=== PATIENT | female | born 1975 | race Two or more races ===

== ENCOUNTER 2024-03-31 18:08 | Inpatient (IN) | payer MEDICAID, OTHER ==
[~2024-03-31] VITALS: Ht 165.1 cm; Wt 124.3 kg
[2024-03-31 18:52] LABS: Basophils # (auto) 0.1 10 ^3/uL (0-0.2); Basophils % (auto) 0.9 % (0.0-2.0); Eosinophils # (auto) 0.3 10 ^3/uL (0-0.8); Eosinophils % (auto) 2.6 % (0.0-7.0); Hematocrit 41.5 % (36.0-46.0); Hemoglobin 13.7 g/dL (12.2-16.2); Lymphocytes # (auto) 2.8 10 ^3/uL (0.4-5.4); Lymphocytes % (auto) 25.1 % (10.0-50.0); Mean Corpuscular Hemoglobin 27.6 pg (28.0-32.0); Mean Corpuscular Hgb Conc. 32.9 g/dL (32.0-36.0); Mean Corpuscular Volume 83.8 fL (80.0-100.0); Monocytes # (auto) 0.5 10 ^3/uL (0-1.3); Monocytes % (auto) 4.8 % (0.0-12.0); Neutrophils # (auto) 7.4 10 ^3/uL (1.6-8.6); Neutrophils % (auto) 66.6 % (37.0-80.0); Nucleated Red Blood Cells % 0.1 %; Red Blood Cells 4.95 10^6/uL (4.0-5.20); Red Cell Distribution Width 15.6 % (11.8-14.3); White Blood Cell 11.1 10^3/uL (4.4-10.8)
[2024-03-31 19:07] LABS: Alanine Aminotransferase 31 U/L (7-40); Albumin 4.5 g/dL (3.2-4.8); Alkaline Phosphatase 109 U/L (46-116); Anion Gap 11 (5-15); Aspartate Aminotransferase 25 U/L (13-40); Blood Urea Nitrogen 11 mg/dL (9-23); Calcium 9.8 mg/dL (8.5-10.1); Carbon Dioxide 28 mmol/L (20-30); Chloride 98 mmol/L (98-107); Glucose 323 mg/dL (74-106); Potassium 3.8 mmol/L (3.5-5.1); Sodium 137 mmol/L (136-145)
[2024-03-31 19:08] LABS: Bilirubin, Total 0.6 mg/dL (0.2-1.0); Total Protein 7.1 g/dL (5.7-8.2)
[2024-03-31] MEDS: IOHEXOL 350 MG/ML 100ML IJ ONE (20:38)
[2024-03-31] MEDS: methylPREDNISolone SOD SUCC 500 MG in SODIUM CHL 0.9% 100 ML IV ONE (21:18)
[2024-03-31] MEDS ORDERED: DEXTROSE (50%) 50ML SYRG IV PRN (22:30)
[2024-03-31] MEDS ORDERED: ONDANSETRON HCL 4 MG/2 ML VIAL IV PRN (22:30)
[2024-03-31] MEDS ORDERED: ACETAMINOPHEN 325 MG TAB PO PRN (22:30)
[2024-03-31] MEDS ORDERED: ARTIFICIAL TEARS 15ml EACHEYE PRN (22:30)
[2024-03-31] MEDS ORDERED: NITROGLYCERIN 0.4 MG SL TAB SL PRN (22:30)
[2024-03-31] MEDS ORDERED: MORPHINE SULFATE INJ 2 MG/ml SYRG IV PRN (22:30)
[2024-04-01 01:00] VITALS: PULSE 100; RESP 24; TEMP 99.1; O2SAT 93
[2024-04-01 04:27] LABS: Basophils # (auto) 0 10 ^3/uL (0-0.2); Basophils % (auto) 0.2 % (0.0-2.0); Eosinophils # (auto) 0 10 ^3/uL (0-0.8); Eosinophils % (auto) 0.1 % (0.0-7.0); Hematocrit 43.7 % (36.0-46.0); Hemoglobin 13.8 g/dL (12.2-16.2); Lymphocytes % (auto) 8.8 % (10.0-50.0); Mean Corpuscular Hemoglobin 27.6 pg (28.0-32.0); Mean Corpuscular Hgb Conc. 31.7 g/dL (32.0-36.0); Mean Corpuscular Volume 87.1 fL (80.0-100.0); Monocytes # (auto) 0.1 10 ^3/uL (0-1.3); Neutrophils # (auto) 10.2 10 ^3/uL (1.6-8.6); Neutrophils % (auto) 89.9 % (37.0-80.0); Red Blood Cells 5.02 10^6/uL (4.0-5.20); Red Cell Distribution Width 15.9 % (11.8-14.3); White Blood Cell 11.3 10^3/uL (4.4-10.8)
[2024-04-01 04:40] LABS: Chloride 99 mmol/L (98-107); Sodium 133 mmol/L (136-145)
[2024-04-01 04:41] LABS: Anion Gap 13 (5-15); Calcium 9.6 mg/dL (8.7-10.4); Carbon Dioxide 21 mmol/L (20-30)
[2024-04-01 04:46] LABS: BUN/Creatinine Ratio 10.9 (10.0-20.0); Blood Urea Nitrogen 11 mg/dL (9-23)
[2024-04-01 04:56] LABS: Glucose 493 mg/dL (74-106)
[2024-04-01] MEDS ORDERED: DEXTROSE (50%) 50ML SYRG IV PRN (06:00)
[2024-04-01] MEDS: ACCU-CHEK COMFORT CURVE STRIP VI SCH (06:24)
[2024-04-01] MEDS: InsuLIN REG 1unit/0.01ml Soln (100units/ml) SC SCH (06:29)
[2024-04-01] MEDS ORDERED: ACCU-CHEK COMFORT CURVE STRIP VI SCH (07:00)
[2024-04-01] MEDS ORDERED: InsuLIN REG 1unit/0.01ml Soln (100units/ml) SC SCH (07:00)
[2024-04-01 08:00] VITALS: PULSE 97; RESP 24; O2SAT 95
[2024-04-01] MEDS: METOPROLOL TARTRATE 50 MG TAB PO SCH (08:47)
[2024-04-01] MEDS: amLODIPine BESYLATE 5 MG TAB PO SCH (08:48)
[2024-04-01] MEDS: LISINOPRIL 20 MG TAB PO SCH (08:48)
[2024-04-01] MEDS: ENOXAPARIN SOD 40 MG/0.4 ML SYRINGE SC SCH (08:49)
[2024-04-01] MEDS ORDERED: LORazepam 2MG/ML-1ML VIAL IV PRN (10:30)
[2024-04-01 11:09] LABS: Triglycerides 246 mg/dL (< 150)
[2024-04-01 11:10] LABS: LDL Cholesterol 56 mg/dL (< 100)
[2024-04-01 11:11] LABS: HDL Cholesterol 29 mg/dL (40-59)
[2024-04-01] MEDS: CLOPIDOGREL BISULFATE 75 MG TAB PO ONE (11:11)
[2024-04-01] MEDS: ASPirin 81 mg TAB PO ONE (11:11)
[2024-04-01] MEDS: PANTOPRAZOLE 40 MG TAB PO ONE (11:11)
[2024-04-01 11:12] LABS: Cholesterol 128 mg/dL (< 200)
[2024-04-01 11:16] LABS: INR 1.05 (0.9-1.15); Partial Thromboplastin Time 29.9 SEC (24.5-34.5); Prothrombin Time 11.1 sec (9.3-11.8)
[2024-04-01] MEDS: INSULIN LANTUS (GLARGINE) 1 /0.01ml (100units/ml) SC ONE (12:38)
[2024-04-01 13:00] VITALS: BP 141/75; PULSE 90; RESP 16; O2SAT 93
[2024-04-01] MEDS ORDERED: PRED20TA2 PO (13:26)
[2024-04-01] MEDS ORDERED: PANT40T PO (13:26)
[2024-04-01] MEDS ORDERED: FAMOTIDINE 20 MG TAB PO SCH (22:00)
[2024-04-01] MEDS ORDERED: ATORVASTATIN 20 MG TAB PO SCH (22:00)
[2024-04-02] MEDS ORDERED: CLOPIDOGREL BISULFATE 75 MG TAB PO SCH (10:00)
[2024-04-02] MEDS ORDERED: ASPirin 81 mg TAB PO SCH (10:00)
[2024-04-02] MEDS ORDERED: predniSONE 20 MG TAB PO SCH (10:00)
[2024-04-02] MEDS ORDERED: INSULIN LANTUS (GLARGINE) 1 /0.01ml (100units/ml) SC SCH (10:00)
[2024-04-02] MEDS ORDERED: PANTOPRAZOLE 40 MG TAB PO SCH (10:00)
== END 2024-04-01 13:42 | disposition home or self-care (01) | DRG 48 ==
LOC: ER 18:08 → TELE 22:36
PROVIDERS: ADMIT Internal Medicine Pulmonary Disease; ATTEND Internal Medicine Pulmonary Disease
DX: G51.0 Bell's palsy (principal); E11.9 Type 2 diabetes mellitus without complications; I16.0 Hypertensive urgency; E66.01 Morbid (severe) obesity due to excess calories; G89.4 Chronic pain syndrome; F17.200 Nicotine dependence, unspecified, uncomplicated; Z90.49 Acquired absence of other specified parts of digestive tract; Z68.42 Body mass index [BMI] 45.0-49.9, adult; Z86.711 Personal history of pulmonary embolism; Z82.49 Family history of ischemic heart disease and other diseases of the circulatory system; Z83.3 Family history of diabetes mellitus; Z80.9 Family history of malignant neoplasm, unspecified
CPT/HCPCS: 36415; 70496; 70551; 71045; 80048; 80053; 80061; 82962; 83036; 84443; 84484; 85025; 85610; 85730; 93005; G0378; J1815